=== PATIENT | female | born 1965 | race Hispanic/Latino ===

== ENCOUNTER 2019-07-14 17:19 | Emergency (ER) | payer BC ==
[~2019-07-14] VITALS: Ht 147.3 cm; Wt 90.0 kg
[~2019-07-14 17:19] MED LIST: AUGMENTIN875TAB PO; BENADRYL 50MG C50 MG PO; CIPROFLOXACN500 MG PO; DOXYCYCL HYC100 M4 PO; KENALOG15 GM/TUBE EX; NAPROSYN500 MG PO; NO HOME MEDS; PERCOCET 10/31 COMBO PO
[2019-07-14] MEDS ORDERED: LEVOTHYROXIN137 MCG PO (17:35)
[2019-07-14 18:14] LABS: HEMATOCRIT 40.9 % (37.0-47.0); HEMOGLOBIN 13.5 g/dl (12.0-16.0); IMMATURE GRANULOCYTES 0.6 % (0.0-5.0); MEAN CELL VOLUME 89.1 fL CALC (80.0-100.0); MEAN CORPUSCULAR HGB 29.4 pG CALC (26.0-32.0); NEUT# 3.25 thou/uL (2.00-7.15); RED BLOOD COUNT 4.59 mill/uL (4.20-5.60); RED CELL DISTRI WIDTH 13.2 % (11.5-15.5)
[2019-07-14 18:24] LABS: ALBUMIN 4.3 g/dL (3.2-5.0); ALKALINE PHOSPHATASE 164 u/l (38-126); ANION GAP 15 (6-22 (CALC)); BILIRUBIN, TOTAL 0.4 mg/dL (0.0-1.4); BUN 12 mg/dL (7-17); BUN/CREATININE RATIO 17 (12-20 (CALC)); CARBON DIOXIDE 24 mmol/l (22-30); CHLORIDE 105 mmol/l (95-108); CREATININE 0.7 mg/dL (0.5-1.0); GFR > 60 ML/MIN (>=60 (CALC)); GFR FOR AFR.AMER. > 60 ML/MIN (>=60 (CALC)); LIPASE 127 u/l (23-300); SGOT/AST 76 u/l (14-36); SODIUM 139 mmol/l (137-146); TOTAL PROTEIN 7.7 g/dL (6.3-8.2)
[2019-07-14 20:27] LABS: URINE BILIRUBIN - DIPSTICK NEGATIVE (NEGATIVE); URINE BLOOD DIPSTICK SMALL (NEGATIVE); URINE COLOR YELLOW; URINE GLUCOSE - DIPSTICK NEGATIVE (NEGATIVE); URINE KETONE NEGATIVE (NEGATIVE); URINE LEUK ESTERASE NEGATIVE (NEGATIVE); URINE NITRITE - DIPSTICK POSITIVE (Negative); URINE PH 5.5 (4.5-8.0); URINE PROTEIN - DIPSTICK NEGATIVE (NEG-TRACE); URINE SPECIFIC GRAVITY >=1.030; URINE UROBILINOGEN - DIPSTICK 0.2 E.U./dL (0.2)
[2019-07-14 20:50] LABS: URINE BACTERIA RARE hpf
[2019-07-14] MEDS ORDERED: CEPHALEXIN500 MG PO (21:24)
[2019-07-14] MEDS ORDERED: ULTRAM50 M1 PO (21:24)
[2019-07-14 21:30] VITALS: BP 109/58
== END 2019-07-14 21:36 | disposition home or self-care (01) | DRG 866 ==
LOC: ED 17:19
PROVIDERS: Family Medicine
DX: B34.9 Viral infection, unspecified (principal); N39.0 Urinary tract infection, site not specified; K76.0 Fatty (change of) liver, not elsewhere classified; Z85.118 Personal history of other malignant neoplasm of bronchus and lung; Z90.2 Acquired absence of lung [part of]
CPT/HCPCS: Q9967

== ENCOUNTER 2019-08-06 21:34 | Emergency (ER) | payer BC ==
[~2019-08-06] VITALS: Ht 149.9 cm; Wt 75.9 kg
[~2019-08-06 21:34] MED LIST changes: +CEPHALEXIN500 MG PO; +LEVOTHYROXIN137 MCG PO; +ULTRAM50 M1 PO
[2019-08-06 21:40] VITALS: BP 134/84
[2019-08-06 22:38] LABS: HEMATOCRIT 42.4 % (37.0-47.0); HEMOGLOBIN 13.8 g/dl (12.0-16.0); IMMATURE GRANULOCYTES 0.3 % (0.0-5.0); MEAN CELL VOLUME 89.1 fL CALC (80.0-100.0); MEAN CORPUSCULAR HGB CONC 32.5 g/L CALC (32.0-36.0); NEUT# 3.88 thou/uL (2.00-7.15); RED BLOOD COUNT 4.76 mill/uL (4.20-5.60); RED CELL DISTRI WIDTH 13.2 % (11.5-15.5)
[2019-08-06 22:45] LABS: URINE BILIRUBIN - DIPSTICK NEGATIVE (NEGATIVE); URINE BLOOD DIPSTICK MODERATE (NEGATIVE); URINE COLOR YELLOW; URINE GLUCOSE - DIPSTICK NEGATIVE (NEGATIVE); URINE KETONE NEGATIVE (NEGATIVE); URINE NITRITE - DIPSTICK NEGATIVE (Negative); URINE PROTEIN - DIPSTICK NEGATIVE (NEG-TRACE); URINE SPECIFIC GRAVITY <=1.005; URINE UROBILINOGEN - DIPSTICK 0.2 E.U./dL (0.2)
[2019-08-06 22:48] LABS: URINE LEUK ESTERASE SMALL (NEGATIVE)
[2019-08-06 22:51] LABS: URINE SQUAMOUS EPITHELIAL CELL FEW EPI/hpf (0-FEW)
[2019-08-06 23:03] LABS: ALBUMIN 4.5 g/dL (3.2-5.0); ALKALINE PHOSPHATASE 134 u/l (38-126); ANION GAP 15 (6-22 (CALC)); BILIRUBIN, TOTAL 0.4 mg/dL (0.0-1.4); BUN 13 mg/dL (7-17); BUN/CREATININE RATIO 14 (12-20 (CALC)); CARBON DIOXIDE 24 mmol/l (22-30); CHLORIDE 103 mmol/l (95-108); CREATININE 0.9 mg/dL (0.5-1.0); GFR > 60 ML/MIN (>=60 (CALC)); GFR FOR AFR.AMER. > 60 ML/MIN (>=60 (CALC)); POTASSIUM 3.9 mmol/l (3.5-5.1); SGOT/AST 82 u/l (14-36); SODIUM 139 mmol/l (137-146); TOTAL PROTEIN 8.1 g/dL (6.3-8.2)
[2019-08-06] MEDS ORDERED: MONISTAT1 VA (23:31)
[2019-08-06] MEDS ORDERED: CEPHALEXIN500 M1 PO (23:31)
== END 2019-08-06 23:45 | disposition home or self-care (01) | DRG 690 ==
LOC: ED 21:34
PROVIDERS: Emergency Medicine
DX: N39.0 Urinary tract infection, site not specified (principal); N76.0 Acute vaginitis; E03.9 Hypothyroidism, unspecified

== ENCOUNTER 2019-08-27 20:05 | Emergency (ER) | payer BC ==
[~2019-08-27] VITALS: Ht 149.9 cm; Wt 88.2 kg
[~2019-08-27 20:05] MED LIST changes: +CEPHALEXIN500 M1 PO; +MONISTAT1 VA
[2019-08-27 21:46] LABS: HEMOGLOBIN 13.4 g/dl (12.0-16.0); IMMATURE GRANULOCYTES 0.4 % (0.0-5.0); MEAN CELL VOLUME 90.1 fL CALC (80.0-100.0); MEAN CORPUSCULAR HGB 29.5 pG CALC (26.0-32.0); MEAN CORPUSCULAR HGB CONC 32.7 g/L CALC (32.0-36.0); NEUT# 4.82 thou/uL (2.00-7.15); RED BLOOD COUNT 4.55 mill/uL (4.20-5.60); RED CELL DISTRI WIDTH 13.2 % (11.5-15.5)
[2019-08-27 21:47] LABS: URINE BILIRUBIN - DIPSTICK NEGATIVE (NEGATIVE); URINE BLOOD DIPSTICK SMALL (NEGATIVE); URINE COLOR YELLOW; URINE GLUCOSE - DIPSTICK NEGATIVE (NEGATIVE); URINE KETONE NEGATIVE (NEGATIVE); URINE NITRITE - DIPSTICK NEGATIVE (Negative); URINE PROTEIN - DIPSTICK NEGATIVE (NEG-TRACE); URINE SPECIFIC GRAVITY 1.025; URINE UROBILINOGEN - DIPSTICK 0.2 E.U./dL (0.2)
[2019-08-27 21:48] LABS: URINE LEUK ESTERASE SMALL (NEGATIVE)
[2019-08-27 21:57] LABS: URINE SQUAMOUS EPITHELIAL CELL MODERATE EPI/hpf (0-FEW)
[2019-08-27 21:58] LABS: ALKALINE PHOSPHATASE 148 u/l (38-126); AMYLASE 45 u/l (30-110); ANION GAP 14 (6-22 (CALC)); BILIRUBIN, TOTAL 0.5 mg/dL (0.0-1.4); BUN 9 mg/dL (7-17); BUN/CREATININE RATIO 16 (12-20 (CALC)); CARBON DIOXIDE 22 mmol/l (22-30); CHLORIDE 105 mmol/l (95-108); CREATININE 0.6 mg/dL (0.5-1.0); GFR > 60 ML/MIN (>=60 (CALC)); GFR FOR AFR.AMER. > 60 ML/MIN (>=60 (CALC)); LIPASE 108 u/l (23-300); POTASSIUM 3.9 mmol/l (3.5-5.1); SGOT/AST 46 u/l (14-36); SODIUM 137 mmol/l (137-146); TOTAL PROTEIN 7.3 g/dL (6.3-8.2)
[2019-08-27] MEDS ORDERED: LOMOTIL2.5 MG PO (23:20)
[2019-08-27] MEDS ORDERED: PHENERGAN25 MG/TAB PO (23:20)
[2019-08-27 23:59] VITALS: BP 111/72
== END 2019-08-27 23:59 | disposition home or self-care (01) | DRG 392 ==
LOC: ED 20:05
PROVIDERS: Family Medicine
DX: A08.4 Viral intestinal infection, unspecified (principal); E03.9 Hypothyroidism, unspecified

== ENCOUNTER 2019-10-30 | Emergency (ER) | payer BC ==
[~2019-10-30] MED LIST changes: +LOMOTIL2.5 MG PO; +PHENERGAN25 MG/TAB PO
[2019-10-30 22:43] LABS: HEMATOCRIT 43.7 % (37.0-47.0); HEMOGLOBIN 14.4 g/dl (12.0-16.0); IMMATURE GRANULOCYTES 1.3 % (0.0-5.0); MEAN CELL VOLUME 89.2 fL CALC (80.0-100.0); MEAN CORPUSCULAR HGB 29.4 pG CALC (26.0-32.0); NEUT# 4.8 thou/uL (2.00-7.15); RED BLOOD COUNT 4.9 mill/uL (4.20-5.60); RED CELL DISTRI WIDTH 13.4 % (11.5-15.5)
[2019-10-30 23:00] LABS: ALBUMIN 4.2 g/dL (3.2-5.0); ALKALINE PHOSPHATASE 161 u/l (38-126); AMYLASE 49 u/l (30-110); ANION GAP 14 (6-22 (CALC)); BILIRUBIN, TOTAL 0.3 mg/dL (0.0-1.4); BUN 17 mg/dL (7-17); BUN/CREATININE RATIO 18 (12-20 (CALC)); CHLORIDE 98 mmol/l (95-108); CREATININE 0.9 mg/dL (0.5-1.0); GFR > 60 ML/MIN (>=60 (CALC)); GFR FOR AFR.AMER. > 60 ML/MIN (>=60 (CALC)); LIPASE 144 u/l (23-300); POTASSIUM 4.4 mmol/l (3.5-5.1); SGOT/AST 67 u/l (14-36); SODIUM 136 mmol/l (137-146); TOTAL PROTEIN 7.5 g/dL (6.3-8.2)
[2019-10-30 23:02] LABS: CARBON DIOXIDE 28 mmol/l (22-30)
[2019-10-30 23:12] LABS: MYOGLOBIN 20 ng/mL (0 - 62)
[2019-10-31] MEDS ORDERED: BENADRYL 50MG C50 MG PO (01:29)
[2019-10-31] MEDS ORDERED: MEDDOSEPAK PO (01:29)
[2019-10-31] MEDS ORDERED: PEPCID20 MG PO (01:29)
== END 2019-10-31 01:58 | disposition home or self-care (01) | DRG 607 ==
PROVIDERS: Emergency Medicine
DX: L27.1 Localized skin eruption due to drugs and medicaments taken internally (principal); T37.0X5A Adverse effect of sulfonamides, initial encounter; K29.70 Gastritis, unspecified, without bleeding; R74.8 Abnormal levels of other serum enzymes; E03.9 Hypothyroidism, unspecified
CPT/HCPCS: Q9967; S0164

== ENCOUNTER 2020-02-18 13:23 | Inpatient (IN) | payer BC ==
[~2020-02-18] VITALS: Ht 149.9 cm; Wt 77.0 kg
[~2020-02-18 13:23] MED LIST changes: +MEDDOSEPAK PO; +PEPCID20 MG PO
--- NOTE | 2020-02-18 13:37 | NUR ---
PATIENT AMBULATED TO ROOM WITH STEADY GAIT AND PHYSICIAN NOTIFIED OF PATIENT STATUS
--- NOTE | 2020-02-18 13:40 | NUR ---
INITIATED IV AND FLU AND COVID SWAB OBTAINED. PT STATES SHE VISITED HER SISTER IN [place] ON 01/30/20 AND SISTER IS IN THE HOSPITAL WITH "LUNG PROBLEMS FROM THE UGALDE VIRUS FOR A WEEK".PT WITH NAUSEA AND EMESIS.
[2020-02-18 14:07] LABS: HEMATOCRIT 40.1 % (37.0-47.0); IMMATURE GRANULOCYTES 0.3 % (0.0-5.0); MEAN CELL VOLUME 89.9 fL CALC (80.0-100.0); MEAN CORPUSCULAR HGB 29.1 pG CALC (26.0-32.0); MEAN CORPUSCULAR HGB CONC 32.4 g/dL CAL (32.0-36.0); NEUT# 5.06 thou/uL (2.00-7.15); RED BLOOD COUNT 4.46 mill/uL (4.20-5.60)
[2020-02-18 14:28] LABS: ALBUMIN 4.2 g/dL (3.2-5.0); ALKALINE PHOSPHATASE 115 u/l (38-126); ANION GAP 15 (6-22 (CALC)); BUN 12 mg/dL (7-17); BUN/CREATININE RATIO 16 (12-20 (CALC)); C-REACTIVE PROTEIN 6.3 mg/dL (0-0.9); CARBON DIOXIDE 26 mmol/l (22-30); CHLORIDE 101 mmol/l (95-108); CREATININE 0.7 mg/dL (0.5-1.0); GFR > 60 ML/MIN (>=60 (CALC)); GFR FOR AFR.AMER. > 60 ML/MIN (>=60 (CALC)); POTASSIUM 4.3 mmol/l (3.5-5.1); SGOT/AST 53 u/l (14-36); SODIUM 137 mmol/l (137-146); TOTAL PROTEIN 7.4 g/dL (6.3-8.2)
[2020-02-18 14:34] LABS: BILIRUBIN, TOTAL 0.5 mg/dL (0.0-1.4)
--- NOTE | 2020-02-18 14:40 | NUR ---
DR GOULD AT BEDSIDE TO DISCUSS POC AND FINGINDS AND CONTINUED TESTING; VSS; WILL CONTINUE TO MONITOR
[2020-02-18 14:42] LABS: BETA-HCG, QUANT(RESULT NUMBER) <2 mIU/mL
--- NOTE | 2020-02-18 15:40 | NUR ---
PT RESTING ON STRETCHER; REQUESTING IV FLUIDS AT THIS TIME FOR "FEELING SO WEAK AND HAVEN'T EATEN TODAY"; NOTFIED; IVF INFUSING PER MAR; PT MEDICATED FOR TEMP 100.8; PT ADVISED OF CONTINUED WAIT TIME FOR TEST RESULTS; MONITORING DEVICES IN PLACE; VSS; WILL CONTINUE TO MONITOR
--- NOTE | 2020-02-18 16:40 | NUR ---
PT RESTING ON STRETCHER; ADVISED OF CONTINUED WAIT TIME; WILL CONTINUE TO MONITOR
--- NOTE | 2020-02-18 17:13 | NUR ---
IV ANTIBITOICS INFUSING PT ADVISED OF CONTINUED WAIT TIME; VSS; WILL CONTINUE TO MONITOR
[2020-02-18 17:42] LABS: URINE BILIRUBIN - DIPSTICK NEGATIVE (NEGATIVE); URINE BLOOD DIPSTICK TRACE-INTACT (NEGATIVE); URINE COLOR YELLOW; URINE GLUCOSE - DIPSTICK NEGATIVE (NEGATIVE); URINE KETONE NEGATIVE (NEGATIVE); URINE LEUK ESTERASE NEGATIVE (NEGATIVE); URINE NITRITE - DIPSTICK NEGATIVE (Negative); URINE PH 7.5 (4.5-8.0); URINE PROTEIN - DIPSTICK NEGATIVE (NEG-TRACE); URINE SPECIFIC GRAVITY 1.015
--- NOTE | 2020-02-18 18:17 | NUR ---
REPORT CALLED TO MED SURG
--- NOTE | 2020-02-18 18:45 | NUR ---
Admission Note Report Given to: SOPHIE JEAN BAPTISTE Transported by: Wheelchair X Stretcher Transported with: X Nurse Transporter X Patent IV X O2 X Hardware Press Operator Location: ICU X MS2
[2020-02-18 18:55] VITALS: BP 119/71
--- NOTE | 2020-02-18 20:00 | NUR ---
PT REPORTEDLY ARRIVED TO UNIT @ 1845, UPON ENTERING ROOM PT IS FOUND SITTING UP IN BED TALKING ON PHONE. NO APPARENT DISTRESS. RESPIRATIONS REGULAR AND UNLABORED. PHYSICAL ASSESSMENT COMPLETE. VS TAKEN BY UNIVERSAL WORKER ASSISTED LIVING @ 1855 ASSESSED. PLAN OF CARE REVIEWED, PT VERBALIZES UNDERSTANDING AND DENIES QUESTIONS. DENIES FURTHER NEEDS @ THIS TIME. ITEMS WITHIN REACH. BED LOCKED IN LOW POSITION W/ BEDRAILS UP X2. AIRBORNE/CONTACT PRECAUTIONS IN PLACE. CALL SHEPPARD WITHIN REACH. AGREES TO CALL PRN.
--- NOTE | 2020-02-18 20:20 | NUR ---
CLARIFIED ZITHROMAX DOSE W/ DR. GUERRERO PER PHARMACIST MARIAMA'S REQUEST. ORDER RECEIVED FOR PRN ANTITUSSIVE WELL. SEE MAR.
[2020-02-18 23:55] VITALS: BP 123/63
--- NOTE | 2020-02-19 01:08 | NUR ---
PT C/O OF NAUSEA, SPOKE W/ DR. LEWIS FOR ANTI-EMETIC ORDERS, ZOFRAN IV PRESCRIBED. SEE MAR.
--- NOTE | 2020-02-19 01:43 | NUR ---
UPON ENTERING ROOM TO MEDICATE PT W/ ZOFRAN PT FOUND TO BE SLEEPING SOUNDLY. APPEARS COMFORTABLE AND IN NO DISTRESS, RESPIRATIONS REGULAR AND UNLABORED. CALL SHEPPARD REMAINS WITHIN REACH. SAFETY INTERVENTIONS AND AIRBORNE/CONTACT PRECAUTIONS REMAIN IN PLACE/UNCHANGED.
[2020-02-19 04:10] VITALS: BP 119/69
[2020-02-19 06:13] LABS: HEMATOCRIT 38.3 % (37.0-47.0); HEMOGLOBIN 12.3 g/dl (12.0-16.0); IMMATURE GRANULOCYTES 0.5 % (0.0-5.0); MEAN CELL VOLUME 90.5 fL CALC (80.0-100.0); MEAN CORPUSCULAR HGB 29.1 pG CALC (26.0-32.0); MEAN CORPUSCULAR HGB CONC 32.1 g/dL CAL (32.0-36.0); NEUT# 4.8 thou/uL (2.00-7.15); RED BLOOD COUNT 4.23 mill/uL (4.20-5.60); RED CELL DISTRI WIDTH 13.2 % (11.5-15.5)
[2020-02-19 06:27] LABS: ALBUMIN 3.9 g/dL (3.2-5.0); ALKALINE PHOSPHATASE 104 u/l (38-126); ANION GAP 12 (6-22 (CALC)); BILIRUBIN, TOTAL 0.5 mg/dL (0.0-1.4); BUN 9 mg/dL (7-17); BUN/CREATININE RATIO 12 (12-20 (CALC)); C-REACTIVE PROTEIN 7.6 mg/dL (0-0.9); CARBON DIOXIDE 27 mmol/l (22-30); CHLORIDE 100 mmol/l (95-108); CREATININE 0.7 mg/dL (0.5-1.0); GFR > 60 ML/MIN (>=60 (CALC)); GFR FOR AFR.AMER. > 60 ML/MIN (>=60 (CALC)); POTASSIUM 4.1 mmol/l (3.5-5.1); SGOT/AST 69 u/l (14-36); SODIUM 135 mmol/l (137-146); TOTAL PROTEIN 6.9 g/dL (6.3-8.2)
[2020-02-19 07:40] VITALS: BP 130/75
--- NOTE | 2020-02-19 07:40 | NUR ---
ASSSESSMENT IS COMPLETED: IV SITE IS FREE FROM REDNESS OR EDEMA. HR IS REG,PULSES ARE STRONG X4, ABD IS SOFT WITH ACTIVE BS. BREATH SOUNDS ARE CLEAR,BILATERALLY, TELE MONITOR IN PLACE. CONTINEU TO OBSERVE AND MONITOR.
[2020-02-19] MEDS ORDERED: METFORMIN500 M2 PO (09:11)
[2020-02-19] MEDS ORDERED: LIPITOR20 M1 PO (09:12)
[2020-02-19] MEDS ORDERED: LEVOTHYROXIN125 MCG PO (09:12)
--- NOTE | 2020-02-19 09:13 | NUR ---
SPOKE WITH PT, COMPLETED MED REC. UPDATED MED LIST.
[2020-02-19 12:15] VITALS: BP 101/68
--- NOTE | 2020-02-19 12:40 | NUR ---
PT IS RELAXING IN BED WITH NO DISTRESS NOTED. IV SITE IS FREE FROM REDNESS OR EDEMA.
[2020-02-19 16:14] VITALS: BP 106/57; BP 126/64
[2020-02-19 19:15] VITALS: BP 115/71
--- NOTE | 2020-02-19 21:10 | NUR ---
PT IS LAYING ON HER BACK TALKING ON CELL PHONE. I ASKED IF PT NEEDED ME TO RETURN AT ANOTHER TIME, SHE REPLIED "NO, GO AHEAD AND DO WHAT YOU NEED TO DO." I EXPLAINED MEDICATIONS TO PT AND ADMINISTERED, MEDICATING HER FOR HEADACHE REPORTED 10/10 ON PAIN SCALE W/TYLENOL. PT STATED THAT SHE WILL TAKE IT, BUT IT "WILL NOT DO ANYTHING, I NEED SOMETHING STRONGER." I INFORMED PT THAT I WOULD PUT A CALL IN TO THE DOCTOR REGARDING NEED AND ATTEMPT TO GET AN ORDER FOR SOMETHING TO RELEIVE HER HEAD PAIN. ASSESSMENT COMPLETED AT THIS TIME TO THE BEST OF MY ABILITY, PT REMAINED ON PHONE AND WAS PARTIALLY NON-COMPLIANT W/ASSESSMENT. LUNG SOUNDS ARE DIMINISHED THROUGHOUT.
--- NOTE | 2020-02-19 21:43 | NUR ---
MEDICATED PT FOR HEADACHE 8/10 ON PAIN SCALE AND EXPLAINED TO HER THAT THE DOCTOR GAVE INSTRUCTIONS TO LAY PRONE ON HER STOMACH AND EDUCATED PT ON REASONING/PURPOSE/OUTCOME. SHE NODDED AND REPLIED "OKAY." PT DID NOT TURN OVER AT THAT TIME. I EXPLAINED THE PHYSICIANS INSTRUCTIONS/REQUEST AND REASONS BEHIND IT TWO TIMES PRIOR TO LEAVING ROOM, SHE VERBALIZED UNDERSTANDING, BUT REMAINED ON HER SIDE UNTIL I LEFT THE ROOM. PT DENIED ANY OTHER NEEDS AND STATED SHE WILL CALL IF SHE NEEDS ANYTHING FURTHER.
[2020-02-19 23:40] VITALS: BP 116/71
--- NOTE | 2020-02-20 03:05 | NUR ---
PT SLEEPING, NO S/O DISTRESS NOTED.
[2020-02-20 03:53] VITALS: BP 123/82
--- NOTE | 2020-02-20 05:23 | NUR ---
ATTEMPT TO DRAW BLOOD FOR LABS, UNABLE TO OBTAIN. PT MEDICATED FOR HEADACHE AT THIS TIME. ASKING FOR FRESH ICEWATER IN PLACE OF HER WATER, DENIES ANY OTHER NEEDS AT THIS TIME.
[2020-02-20 07:56] VITALS: BP 107/73
--- NOTE | 2020-02-20 09:00 | NUR ---
PT IS ALERT, ORIENTED X 3, AMBULATORY IN ROOM, NO EVIDENCE OF DISTRESS. LUNGS ARE CLEAR, RA. PT WITH HEADACHE, TO RECEIVE ULTRAM.
--- NOTE | 2020-02-20 09:10 | NUR ---
CALLED [facility] AND SPOKE WITH BLAKE, PATIENT'S NURSE AND THEN CALLED PATIENT'S PROVIDER TO GIVE COVID RESULTS.
[2020-02-20 09:17] LABS: HEMATOCRIT 38.7 % (37.0-47.0); HEMOGLOBIN 12.1 g/dl (12.0-16.0); IMMATURE GRANULOCYTES 0.3 % (0.0-5.0); MEAN CELL VOLUME 92.4 fL CALC (80.0-100.0); MEAN CORPUSCULAR HGB 28.9 pG CALC (26.0-32.0); MEAN CORPUSCULAR HGB CONC 31.3 g/dL CAL (32.0-36.0); NEUT# 5.99 thou/uL (2.00-7.15); RED BLOOD COUNT 4.19 mill/uL (4.20-5.60); RED CELL DISTRI WIDTH 13.2 % (11.5-15.5)
[2020-02-20 09:25] LABS: ALBUMIN 3.8 g/dL (3.2-5.0); ALKALINE PHOSPHATASE 98 u/l (38-126); ANION GAP 12 (6-22 (CALC)); BILIRUBIN, TOTAL 0.5 mg/dL (0.0-1.4); BUN 12 mg/dL (7-17); BUN/CREATININE RATIO 16 (12-20 (CALC)); CARBON DIOXIDE 29 mmol/l (22-30); CHLORIDE 97 mmol/l (95-108); CREATININE 0.8 mg/dL (0.5-1.0); GFR > 60 ML/MIN (>=60 (CALC)); GFR FOR AFR.AMER. > 60 ML/MIN (>=60 (CALC)); SGOT/AST 61 u/l (14-36); SODIUM 134 mmol/l (137-146); TOTAL PROTEIN 6.9 g/dL (6.3-8.2)
[2020-02-20 09:36] LABS: C-REACTIVE PROTEIN 13.7 mg/dL (0-0.9)
[2020-02-20 11:35] VITALS: BP 108/70
--- NOTE | 2020-02-20 12:43 | NUR ---
PT PROVIDED TYLENOL PER TEMP OF 101.9, NOW SEEN TO BE 99.4. HEADACHE STILL THERE BUT HAS IMPROVED.
[2020-02-20 16:16] VITALS: BP 119/59
--- NOTE | 2020-02-20 16:19 | NUR ---
PT TEMP NOW 100.1, WILL MEDICATE WITH TYLENOL WHEN IT IS AVAILABLE AGAIN.
[2020-02-20 19:15] VITALS: BP 128/83
--- NOTE | 2020-02-20 20:00 | NUR ---
ASSESSMENT COMPLETED. IV SITE PATENT AND SL, FLUSHES WELL. DENIES PAIN AT THIS TIME. PT. IS JUST OUT OF THE SHOWER. REPORTS BM EARLIER IN THE DAY AND REPORTS NO DIARRHEA. TELEMETRY RE-APPLIED. UPDATED ON POC AND VERBALIZES UNDERSTANDING. ENCOURAGED TO CALL FOR ANY NEEDS. CALL LIGHT IS IN REACH.
[2020-02-20 23:40] VITALS: BP 119/75
--- NOTE | 2020-02-21 00:10 | NUR ---
PT. C/O CASTELLON AND MEDICATED WITH ORDERED PRN TYLENOL, WILL REASSESS. DENIES FURTHER NEEDS. CALL LIGHT IS IN REACH.
[2020-02-21 03:02] VITALS: BP 119/78
--- NOTE | 2020-02-21 03:15 | NUR ---
PT. SLIGHTLY ANXIOUS AND TEARY EYED R/T RECENT PASSING OF HER SISTER(SHE WAS NOTIFIED EARLIER THIS AM BY DAUGHTER).PT. REQUESTING SOMETHING TO HELP HER RELAX. CALLED ED PHYSICIAN AND NOTIFIED HIM OF THIS, NEW ORDERS RECEIVED AND TO BE CARRIED OUT.
[2020-02-21 07:50] VITALS: BP 96/70
[2020-02-21 09:18] LABS: HEMATOCRIT 37.3 % (37.0-47.0); IMMATURE GRANULOCYTES 0.5 % (0.0-5.0); MEAN CELL VOLUME 91.2 fL CALC (80.0-100.0); MEAN CORPUSCULAR HGB 29.3 pG CALC (26.0-32.0); MEAN CORPUSCULAR HGB CONC 32.2 g/dL CAL (32.0-36.0); NEUT# 4.88 thou/uL (2.00-7.15); RED BLOOD COUNT 4.09 mill/uL (4.20-5.60); RED CELL DISTRI WIDTH 13.2 % (11.5-15.5)
[2020-02-21 09:45] LABS: ALBUMIN 3.6 g/dL (3.2-5.0); ALKALINE PHOSPHATASE 90 u/l (38-126); ANION GAP 12 (6-22 (CALC)); BILIRUBIN, TOTAL 0.5 mg/dL (0.0-1.4); BUN 12 mg/dL (7-17); BUN/CREATININE RATIO 19 (12-20 (CALC)); CARBON DIOXIDE 26 mmol/l (22-30); CHLORIDE 99 mmol/l (95-108); CREATININE 0.6 mg/dL (0.5-1.0); GFR > 60 ML/MIN (>=60 (CALC)); GFR FOR AFR.AMER. > 60 ML/MIN (>=60 (CALC)); POTASSIUM 4.1 mmol/l (3.5-5.1); SGOT/AST 43 u/l (14-36); SODIUM 133 mmol/l (137-146); TOTAL PROTEIN 6.8 g/dL (6.3-8.2)
--- NOTE | 2020-02-21 10:02 | NUR ---
PT SEEN RELAXED IN THE BED, NO DISTRESS. PT SAD PER SISTER'S DURING THE NIGHT IN [place].
[2020-02-21 10:04] LABS: C-REACTIVE PROTEIN 16.1 mg/dL (0-0.9)
[2020-02-21 11:36] VITALS: BP 114/65
--- NOTE | 2020-02-21 15:22 | NUR ---
PT RESTS IN THE BED, TREATED FOR A HEADACHE. NO DISTRESS NOTED OTHERWISE.
[2020-02-21 15:44] VITALS: BP 106/63
--- NOTE | 2020-02-21 16:14 | NUR ---
PT PROVIDED MOTRIN AND ICE PACK FOR HEADACHE PAIN, SEEN UNCOMFORTABLE IN THE BED. SHE DID REFUSE ULTRAM FOR HEADACHE.
--- NOTE | 2020-02-21 18:01 | NUR ---
PT PROVIDED ABX ORDERED, HEADACHE IMPROVED.
[2020-02-21 18:52] VITALS: BP 100/75
--- NOTE | 2020-02-21 20:08 | NUR ---
ASSESSMENT COMPLETED. NO DISTRESS NOTED. O2 INFUSING PER NC AND SPO2 97% ON 2 LITERS/MIN AND TITRATED DOWN TO 1LITER/MIN. UPDATED ON POC; VERBALIZES UNDERSTANDING. COLD PACK APPLIED TO NECK, DENIES NEEDS FOR PAIN MEDS FOR CASTELLON AT THIS TIME. ENCOURAGED TO CALL FOR ANY NEEDS. CALL LIGHT IS IN REACH.
[2020-02-22 00:42] VITALS: BP 94/68
--- NOTE | 2020-02-22 00:45 | NUR ---
RESTING IN BED WITH NO DISTRESS NOTED; DENIES NEEDS. VSS. ENCOURAGED TO CALL FOR ANY NEEDS. CALL LIGHT IS IN REACH.
[2020-02-22 04:53] VITALS: BP 113/71
--- NOTE | 2020-02-22 04:53 | NUR ---
VSS. NO DISTRESS NOTED. AM LABS OBTAINED. DENIES NEEDS. CALL LIGHT IS IN REACH. WILL CONTINUE TO MONITOR.
[2020-02-22 05:55] LABS: HEMATOCRIT 38.8 % (37.0-47.0); HEMOGLOBIN 12.4 g/dl (12.0-16.0); MEAN CELL VOLUME 91.9 fL CALC (80.0-100.0); MEAN CORPUSCULAR HGB 29.4 pG CALC (26.0-32.0); RED BLOOD COUNT 4.22 mill/uL (4.20-5.60); RED CELL DISTRI WIDTH 13.2 % (11.5-15.5)
[2020-02-22 06:11] LABS: ANION GAP 13 (6-22 (CALC)); BUN 15 mg/dL (7-17); BUN/CREATININE RATIO 25 (12-20 (CALC)); CARBON DIOXIDE 26 mmol/l (22-30); CHLORIDE 103 mmol/l (95-108); CREATININE 0.6 mg/dL (0.5-1.0); GFR > 60 ML/MIN (>=60 (CALC)); GFR FOR AFR.AMER. > 60 ML/MIN (>=60 (CALC)); POTASSIUM 4.1 mmol/l (3.5-5.1); SODIUM 137 mmol/l (137-146)
[2020-02-22 06:46] LABS: C-REACTIVE PROTEIN 11.6 mg/dL (0-0.9)
--- NOTE | 2020-02-22 07:45 | NUR ---
REPORT RECEIVED FROM SOPHIE WALL. PT SITTING UP ON EDGE OF BED EATING BREAKFAST; ALERT AND ORIENTED; FLAT AFFECT. C/O 9/10 HEADACHE; ICE PACK PROVIDED AND MOTRIN GIVEN. RESPIRATIONS SHALLOW; PT EXPERIENCING SOB AFTER AMBULATING TO BATHROOM AND DRY HEAVING; CURRENTLY DENIES NAUSEA; OXYGEN ON AT 1L; SPO2 88%; TITRATED UP TO 2L AND SPO2 INCREASED TO 91%. EDUCATED ON BREATHING TECHNIQUES. TELE ON. IV SITE APPEARS HEALTHY AND FLUSHES. PLAN OF CARE REVIEWED. PT ENCOURAGED TO VERBALIZE CONCERNS. STATES UNDERSTANDING. SAFETY MEASURES IN PLACE. CALL LIGHT WITHIN REACH.
[2020-02-22 08:15] VITALS: BP 107/69
--- NOTE | 2020-02-22 11:17 | NUR ---
DR. PACK AT BEDSIDE FOR EVAL. SPO2 UP TO 96% ON 2L VIA NC.
[2020-02-22 11:20] VITALS: BP 95/63
[2020-02-22 15:32] VITALS: BP 119/68
--- NOTE | 2020-02-22 15:55 | NUR ---
PT INDEPENDENT IN ROOM. RESTING IN BED SEMI FOWLERS WATCHING TV; ALERT AND ORIENTED. STATES THAT HER FAMILY IS DOING A VISITATION SERVICE FOR HER SISTER WHO YESTERDAY AND ARE CREMATING HER. PT ENCOURAGED TO VERBALIZE HER FEELINGS. NO OTHER REQUESTS OR CONCERNS AT THIS TIME. CALL LIGHT WITHIN REACH.
--- NOTE | 2020-02-22 20:38 | NUR ---
REPORT FROM CASIMIRO BARRIOS. PT NOTED RESTING IN BED ON CELL PHONE. PT DENIES ANY PAIN OR DISCOMFORT AT THIS TIME. IV SITE APPEARS HEALTHY. SENIOR FACILITIES MANAGER IN PLACE. 02 @ 2L/M VIA NC. DISCUSSED POC. PT VERBALIZED UNDERSTANDING. ORANGE JUICE AND TOILET PAPER PROVIDED UPON REQUEST. CALL LIGHT WITHIN REACH. WILL CONTINUE TO MONITOR.
[2020-02-22 20:39] VITALS: BP 114/72
--- NOTE | 2020-02-23 00:22 | NUR ---
PT RESTING IN BED WITH EYES CLOSED. NO APPARENT DISTRESS NOTED. CALL LIGHT WITHIN REACH. WILL CONTINUE TO MONITOR.
[2020-02-23 01:19] VITALS: BP 109/78
[2020-02-23 04:16] VITALS: BP 106/63
--- NOTE | 2020-02-23 04:29 | NUR ---
PT MEDICATED FOR HEADACHE 10-10. ICE PACK PROVIDED. PT DENIES ANY OTHER WANTS OR NEEDS. CALL LIGHT WITHIN REACH. WILL CONTINUE TO MONITOR.
[2020-02-23 04:57] LABS: BASO% 0 % (0-3); EOS% 1 % (0-8); HEMATOCRIT 36.6 % (37.0-47.0); HEMOGLOBIN 11.6 g/dl (12.0-16.0); IMMATURE GRANULOCYTES 1.6 % (0.0-5.0); LYMPH% 29 % (15-41); MEAN CELL VOLUME 91.5 fL CALC (80.0-100.0); MEAN CORPUSCULAR HGB CONC 31.7 g/dL CAL (32.0-36.0); MONO% 15 % (2-13); NEUT# 2.59 thou/uL (2.00-7.15); NEUT% 53 % (42-76); PLATELET COUNT 149 thou/uL (130-400)
[2020-02-23 05:17] LABS: ALBUMIN 3.5 g/dL (3.2-5.0); ALKALINE PHOSPHATASE 111 u/l (38-126); ANION GAP 8 (6-22 (CALC)); BILIRUBIN, TOTAL 0.4 mg/dL (0.0-1.4); BUN 14 mg/dL (7-17); BUN/CREATININE RATIO 20 (12-20 (CALC)); CHLORIDE 102 mmol/l (95-108); CREATININE 0.7 mg/dL (0.5-1.0); GFR > 60 ML/MIN (>=60 (CALC)); GFR FOR AFR.AMER. > 60 ML/MIN (>=60 (CALC)); POTASSIUM 3.9 mmol/l (3.5-5.1); SGOT/AST 71 u/l (14-36); SODIUM 138 mmol/l (137-146); TOTAL PROTEIN 6.7 g/dL (6.3-8.2)
[2020-02-23 05:27] LABS: CARBON DIOXIDE 32 mmol/l (22-30)
--- NOTE | 2020-02-23 09:05 | NUR ---
PRESS CLEANER AT BEDSIDE PATIENT APPEARS IN NO DISTRESS AT THIS TIME. PATIENT REQUESTING INCENTIVE SPIROMETER. DEVICE GIVEN AND INSTRUCTIONS AND GOAL STATED TO PATIENT. PATIENT VERBALIZED UNDERSTANDING. PER PRESS CLEANER GOAL IS 1200. PATIENT DENIES ANY PAIN AT THIS TIME. PATIENT MEDICATED PER ORDER
[2020-02-23 11:00] VITALS: BP 105/75
--- NOTE | 2020-02-23 12:00 | NUR ---
PT RESTING IN SEMI FOWLERS POSITION WATCHING TV. RESPIRATIONS ARE EVEN AND UNLABORED. PT DENIES ANY PAIN OR DISCOMFORTS AT THIS TIME. TELE IN PLACE. ALL SAFTEY PERCAUTIONS IN PLACE WITH CALL LIGHT IN REACH. WILL CONTINUE TO MONITOR.
--- NOTE | 2020-02-23 14:59 | NUR ---
RECIEVED REPORT FROM MARBELLA CEDILLO. ASSESSMENT COMPLETED BY SOPHIE MERCADO. HEART RHYTHM IS NORMAL. LUNG SOUNDS ARE DIMINISHED, PT STATES THAT SHE IS UNABLE TO TAKE DEEP BREATHS OR SHE WILL START COUGHING. PT RECIEVING O2 2L NC NEEDED. BOWEL SOUNDS ARE ACTIVE IN ALL QUADRANTS.PT REQUESTED SOMETHING TO ASSIST WITH BM.PT DENIED PRUNE JUICE DUE TO HAVING A BOWEL MOVMENT ALREADY. LAST REPORTED BM WAS THIS MORNING. RADIAL PULSES ARE STRONG WITH NORMAL CAPILLARY REFILL. PEDAL PULSES ARE WEAK WITH NORMAL CAPILLARY REFILL. IV FLUSHED, SITE APPEARS HEATHY AND PATENT. TELE IN PLACE. PT DENIES ANY PAIN OR DISCOMFORTS AT THIS TIME. ALL SAFTEY PRECAUTIONS IN PLACE WITH CALL LIGHT IN PLACE. WILL CONTINUE TO MONITOR.
[2020-02-23 15:30] VITALS: BP 102/73
--- NOTE | 2020-02-23 16:30 | NUR ---
PT RESTING IN SEMI FOWLERS POSITION. RESPIRATIONS ARE EVEN AND UNLABORED WITH NO SIGNS OF DISTRESS. TELE IN PLACE. ALL SAFETY PRECAUTIONS IN PLACE WITH CALL LIGHT IN REACH. WILL CONTINUE TO MONITOR.
--- NOTE | 2020-02-23 17:50 | NUR ---
ATTEMPTED TO REPLACE IV TWICE, UNSUCCESSFUL BOTH TIMES.
[2020-02-23 19:30] VITALS: BP 117/78
--- NOTE | 2020-02-23 20:46 | NUR ---
PT MEDICATED AT THIS TIME W/PM MEDICATIONS. IV ANTIBIOTIC COMPLETED AT THIS TIME. IV FLUSHED/PATENT. DISCUSSED W/PT OBTAINING NEW IV SITE IN THE MORNING AT TIME OF LAB DRAWS/SHE VERBALIZED AGREEMENT/UNDERSTANDING. PT DENIED ANY OTHER NEEDS AT THIS TIME. CALL LIGHT LEFT IN HAND AND LIGHTS ON LOW.
[2020-02-23 23:50] VITALS: BP 124/84
--- NOTE | 2020-02-24 02:35 | NUR ---
PT SLEEPING, NO S/O DISTRESS NOTED.
[2020-02-24 04:25] VITALS: BP 129/76
--- NOTE | 2020-02-24 05:05 | NUR ---
BLOOD DRAWN FOR LABS, PT ASKED TO WAIT FOR NEW IV ACCESS SINCE THIS IV SITE IS WORKING WELL AND SHE IS HOPING TO GO HOME TODAY, AGREED. WILL NOTIFY [facility] OF REQUEST AND IV STATUS. PT MEDICATED FOR PAIN IN HEAD, PT REFUSED TYLENOL, ASKED FOR ULTRAM/PROVIDED, PT REPORTING PAIN 7/10 ON PAIN SCALE. PT IS UP WALKING AROUND THE ROOM AT THIS TIME. PT ASKING FOR JUICE, DENIES ANY OTHER NEEDS, JUICE PROVIDED.
[2020-02-24 06:51] LABS: HEMATOCRIT 38.8 % (37.0-47.0); HEMOGLOBIN 12.6 g/dl (12.0-16.0); IMMATURE GRANULOCYTES 4.9 % (0.0-5.0); MEAN CELL VOLUME 90.7 fL CALC (80.0-100.0); MEAN CORPUSCULAR HGB 29.4 pG CALC (26.0-32.0); MEAN CORPUSCULAR HGB CONC 32.5 g/dL CAL (32.0-36.0); NEUT# 2.4 thou/uL (2.00-7.15); RED BLOOD COUNT 4.28 mill/uL (4.20-5.60); RED CELL DISTRI WIDTH 13.4 % (11.5-15.5)
[2020-02-24 07:11] LABS: ALBUMIN 3.7 g/dL (3.2-5.0); ALKALINE PHOSPHATASE 123 u/l (38-126); BILIRUBIN, TOTAL 0.3 mg/dL (0.0-1.4); BUN 12 mg/dL (7-17); BUN/CREATININE RATIO 17 (12-20 (CALC)); C-REACTIVE PROTEIN 4.5 mg/dL (0-0.9); CARBON DIOXIDE 28 mmol/l (22-30); CHLORIDE 102 mmol/l (95-108); CREATININE 0.7 mg/dL (0.5-1.0); GFR > 60 ML/MIN (>=60 (CALC)); GFR FOR AFR.AMER. > 60 ML/MIN (>=60 (CALC)); SGOT/AST 102 u/l (14-36); SODIUM 138 mmol/l (137-146); TOTAL PROTEIN 6.8 g/dL (6.3-8.2)
--- NOTE | 2020-02-24 09:15 | NUR ---
NEW #22G STARTED TO RFA ON FIRST ATTEMPT BY THIS WRITTER,PT TOLERATED WELL;MORNING LABS OBTAINED AT THIS TIME;#22G TO RFA REMOVED WITH CATHETER INTACT DUE TO EXPIRATION DATE;PT DENIES ANY ADDITIONAL NEEDS;WILL CONTINUE TO MONITOR
--- NOTE | 2020-02-24 09:50 | NUR ---
RECIEVED REPORT FROM SOPHIE KULKARNI. PT RESTING IN SEMI FOWLERS POSITION UPON ENTERING ROOM. INTRODUCED SELF TO PT AND DISCUSSED POC. ASSESSMENT AND VITALS COMPLETED AT THIS TIME. BP 124/77, HR 66, O2 94% ON ROOM AIR. PT RECIEVING 2L O2 NC PRN. RESPIRATIONS ARE EVEN AND UNLABORED.LUNG SOUNDS ARE DIMINISHED. INCENTIVE SPIROMETER AT BEDSIDE, PT DEMISTRATED FOR WRITTER. PT WAS ABLE TO GO UP TO 1000. HEART RHYTHM IS NORMAL. BOWEL SOUNDS ARE ACTIVE IN ALL QUADRANTS. LAST REOPRTED BM WAS 02/23/20. RADIAL PULSES ARE STRONG WITH NORMAL CAPILLARY REFILL. PEDAL PULSES ARE WEAK WITH NORMAL CAPILLARY REFILL. IV FLUSHED, SITE APPEARS HEALTHY AND PATENT. TELE IN PLACE.PT DENIES ANY PAIN OR DISCOMFORTS AT THIS TIME. ALL SAFETY PRECAUTIONS IN PLACE WITH CALL LIGHT IN REACH.
[2020-02-24 09:55] VITALS: BP 124/77
--- NOTE | 2020-02-24 11:30 | NUR ---
WALK TEST DONE AT THIS TIME. OXYGEN BEFORE WALKING WAS 96% ON ROOM AIR. WHILE WALKING PT DROPPED TO 79% ON ROOM AIR. ARRIVED BACK TO ROOM, PT 85% ON ROOM AIR. 2L O2 APPLIED, PT 94% UPON LEAVING THAT ROOM. RESPIRATIONS ARE EVEN AND UNLABORED. PT DENIES ANY PAIN OR DISCOMFORTS AT THIS TIME.ZHEN Wilson ANRP AND DR TORRES NOTIFIED OF RESULTS AT THIS TIME. ALL SAFETY PRECAUTIONS IN PLACE WITH CALL LIGHT IN REACH. WILL CONTINUE TO MONITOR.
[2020-02-24 11:32] VITALS: BP 114/75
--- NOTE | 2020-02-24 12:20 | NUR ---
PT SITTING ON SIDE OF BED EATING LUNCH. BREATHING IS EVEN AND UNLABORED. PT COMPLAINING OF A 9/10 HEAD ACHE. TRAMADOL GIVEN AT THIS TIME. PT DENIES OF ANY OTHER PAINS OR DISCOMFORTS AT THIS TIME. ALL SAFTEY PRECAUTIONS IN PLACE WITH CALL LIGHT IN REACH. WILL CONTINUE TO MONITOR.
[2020-02-24 14:10] LABS: ANION GAP 12 (6-22 (CALC)); POTASSIUM 3.9 mmol/l (3.5-5.1)
--- NOTE | 2020-02-24 14:56 | NUR ---
DISCHARGE INSTRUCTIONS, EDUCATION GIVEN TO PT, EDUCATED PT ON OXYGEN. PT VEBALIZED UNDERSTANDING. IV REMOVED, CATHATER STILL INTACT. PT TOLERATED WELL. PT DENIES ANY PAIN OR DISCOMFORTS AT THIS TIME. PT STATED THAT SHE WANTED TO SHOWER BEFORE LEAVING AND THEN SHE WILL CALL HER FRIEND FOR TRANSPORTATION. ALL SAFTEY PRECAUTIONS IN PLACE, ENCOURGAED PT TO CALL FOR ASSISTANCE. WILL CONTINUE TO MONITOR.
--- NOTE | 2020-02-24 15:36 | NUR ---
Discharge instructions given. Patient verbalizes understanding of same. Discharged in stable condition via Wheelchair to Home with family. All belongings sent with pt. PT LEFT VIA WHEELCHAIR IN STABLE CONDITION ACCOMPAINED BY BHASKAR LOWRY. ALL BELONGINGS AND DISCHARGE INSTRUCTIONS AND OXYGEN LEFT WITH PT .
--- NOTE | 2020-03-01 13:54 | NUR ---
Pneumonia post discharge follow up call made 03/01/20. Pt staters she is improving daily. States she does not require O2 24/, has had no fever,chills, or unusual SOB since discharge. Pt. said she received call from [facility] that meds were ready and she is gettin g them today. Follow up appt. with PCP has not been made. Encouraged pt to call and set up an appt. Pt a;sp ,emtopmed gabriela [prtab;e O2 dpes mpt see, tp be wprlomg [rp[er;u/ Emcpiraged gabriela tp ca;; :omcare amd ,pita tje, aware pf ossies sp tjeu cam cjecl imot/ Mp meeds ex[ressed bu [atoemt at tjos to,e/ A[[recoatove pf ca;;/
== END 2020-02-24 15:35 | disposition home or self-care (01) | DRG 177 ==
LOC: ED 13:23 → ED-I 16:40 → ED 17:02 → MS2 17:03 → ED-I 17:03 → MS2 17:36
PROVIDERS: Family Medicine; Nurse Practitioner Family; ADMIT Internal Medicine; ATTEND Internal Medicine
DX: U07.1 COVID-19 (principal); J12.89 Other viral pneumonia; E11.9 Type 2 diabetes mellitus without complications; I10 Essential (primary) hypertension; E03.9 Hypothyroidism, unspecified; E78.5 Hyperlipidemia, unspecified; R74.8 Abnormal levels of other serum enzymes; Z87.891 Personal history of nicotine dependence; Z79.84 Long term (current) use of oral hypoglycemic drugs; Z85.118 Personal history of other malignant neoplasm of bronchus and lung
CPT/HCPCS: J1650; Q9967

== ENCOUNTER 2020-09-15 21:46 | Observation (INO) | payer BC ==
[~2020-09-15] VITALS: Ht 149.9 cm; Wt 78.9 kg
[~2020-09-15 21:46] MED LIST changes: +LEVOTHYROXIN125 MCG PO; +LIPITOR20 M1 PO; +METFORMIN500 M2 PO
--- NOTE | 2020-09-15 22:10 | NUR ---
REPORT GIVEN TO COLLEEN BARRIOS
--- NOTE | 2020-09-15 22:10 | NUR ---
PT WALKED TO ROOM WITHOUT EVIDENCE OF ACUTE DISTRESS
[2020-09-15 22:15] LABS: IMMATURE GRANULOCYTES 0.5 % (0.0-5.0); MEAN CELL VOLUME 89.3 fL CALC (80.0-100.0); MEAN CORPUSCULAR HGB 29.5 pG CALC (26.0-32.0); NEUT# 4.14 thou/uL (2.00-7.15); RED BLOOD COUNT 5.05 mill/uL (4.20-5.60); RED CELL DISTRI WIDTH 14.6 % (11.5-15.5)
[2020-09-15 22:22] LABS: HEMATOCRIT 45.1 % (37.0-47.0); HEMOGLOBIN 14.9 g/dl (12.0-16.0)
[2020-09-15 22:33] LABS: ALBUMIN 4.2 g/dL (3.2-5.0); BUN 10 mg/dL (7-17); BUN/CREATININE RATIO 17 (12-20 (CALC)); CARBON DIOXIDE 27 mmol/l (22-30); CHLORIDE 94 mmol/l (95-108); CREATININE 0.6 mg/dL (0.5-1.0); GFR > 60 ML/MIN (>=60 (CALC)); GFR FOR AFR.AMER. > 60 ML/MIN (>=60 (CALC)); LIPASE 193 u/l (23-300); POTASSIUM 4.4 mmol/l (3.5-5.1); SGOT/AST 28 u/l (14-36); TOTAL PROTEIN 6.7 g/dL (6.3-8.2)
[2020-09-15 22:43] LABS: ALKALINE PHOSPHATASE 282 u/l (38-126); ANION GAP 12 (6-22 (CALC)); BILIRUBIN, TOTAL 0.7 mg/dL (0.0-1.4); SODIUM 129 mmol/l (137-146)
[2020-09-16] VITALS (13 sets, daily range): BP systolic 82–128; BP diastolic 50–72
--- NOTE | 2020-09-16 | NUR ---
NO SIGNIFICANT CHANGE IN EXAM.
--- NOTE | 2020-09-16 01:00 | NUR ---
RESTING QUIETLY. NO CHANGE NOTED.
[2020-09-16 01:20] LABS: ANION GAP 11 (6-22 (CALC)); BUN 9 mg/dL (7-17); BUN/CREATININE RATIO 17 (12-20 (CALC)); CARBON DIOXIDE 27 mmol/l (22-30); CHLORIDE 102 mmol/l (95-108); CREATININE 0.5 mg/dL (0.5-1.0); GFR > 60 ML/MIN (>=60 (CALC)); GFR FOR AFR.AMER. > 60 ML/MIN (>=60 (CALC)); POTASSIUM 3.8 mmol/l (3.5-5.1)
[2020-09-16 01:21] LABS: SODIUM 136 mmol/l (137-146)
--- NOTE | 2020-09-16 02:00 | NUR ---
RESTING QUIETLY AWAITING DISPO.
[2020-09-16 02:18] LABS: URINE BILIRUBIN - DIPSTICK NEGATIVE (NEGATIVE); URINE BLOOD DIPSTICK NEGATIVE (NEGATIVE); URINE COLOR YELLOW; URINE GLUCOSE - DIPSTICK >=1000 mg/dL (NEGATIVE); URINE KETONE 40 mg/dL (NEGATIVE); URINE LEUK ESTERASE NEGATIVE (NEGATIVE); URINE NITRITE - DIPSTICK NEGATIVE (Negative); URINE PROTEIN - DIPSTICK NEGATIVE (NEG-TRACE); URINE UROBILINOGEN - DIPSTICK 0.2 E.U./dL (0.2)
--- NOTE | 2020-09-16 02:49 | NUR ---
Admission Note Report Given to: SOPHIE CROOK Transported by: Wheelchair X Stretcher Transported with: X Nurse Transporter X Patent IV O2 Senior Communications Engineer Location: X ICU MS2
--- NOTE | 2020-09-16 03:00 | NUR ---
RECEIVED FROM ER VIA . AMBULATED FROM WC TO BED, STABLE STANCE AND GAIT NOTED. PATIENT IS ALERT AND ORIENTED X4. DENIES ANY CHEST PAIN OR DISCOMFORTS, NO SOB. RESP NON-LABORED. LUNGS CLEAR THROUGHOUT. O2 SAT 96% NO PERIPHERAL EDEMA, PULSES PALPATED. IV IN RAC WITH NS INFUSING AT 125 ML/HR. IV SITE BNEIGN. OYSTER CULLER SHOWS SB. DISCUSSED PLAN OF CARE. DENIES NEEDS AT THIS TIME. CALL SHEPPARD IN REACH.
--- NOTE | 2020-09-16 04:00 | NUR ---
RESTING WITH EYES CLSOED. RESP NON-LABORED. VSS. SB ON MONITOR.
--- NOTE | 2020-09-16 05:00 | NUR ---
BLOOD DRAWN FOR AM LABS.
--- NOTE | 2020-09-16 05:15 | NUR ---
VALUABLES ENVELOPE PICKED UP BY NURSING FINANCIAL SERVICE PROFESSIONAL AND TAKEN TO THE SAFE.
[2020-09-16 05:32] LABS: IMMATURE GRANULOCYTES 0.2 % (0.0-5.0); MEAN CELL VOLUME 90.5 fL CALC (80.0-100.0); MEAN CORPUSCULAR HGB 29.1 pG CALC (26.0-32.0); MEAN CORPUSCULAR HGB CONC 32.1 g/dL CAL (32.0-36.0); NEUT# 3.47 thou/uL (2.00-7.15); RED BLOOD COUNT 4.3 mill/uL (4.20-5.60); RED CELL DISTRI WIDTH 14.2 % (11.5-15.5)
[2020-09-16 05:33] LABS: HEMATOCRIT 38.9 % (37.0-47.0); HEMOGLOBIN 12.5 g/dl (12.0-16.0)
[2020-09-16 05:50] LABS: ANION GAP 8 (6-22 (CALC)); BUN 7 mg/dL (7-17); BUN/CREATININE RATIO 16 (12-20 (CALC)); CARBON DIOXIDE 25 mmol/l (22-30); CHLORIDE 106 mmol/l (95-108); CREATININE 0.5 mg/dL (0.5-1.0); GFR > 60 ML/MIN (>=60 (CALC)); GFR FOR AFR.AMER. > 60 ML/MIN (>=60 (CALC)); POTASSIUM 3.4 mmol/l (3.5-5.1); SODIUM 137 mmol/l (137-146)
--- NOTE | 2020-09-16 06:15 | NUR ---
RESTING WITH EYES CLOSED.
--- NOTE | 2020-09-16 07:20 | NUR ---
pt resting in bed with eyes closed; easily aroused; no apparent distress noted; assessment completed at this time; pt alert and oriented; pt admits to midsternal chest pain rating 7/10; pt admits to pain starting when she woke up but not specific to how long; denies n/v; no diaphoresis noted; resp even and unlabored; lungs clear; skin color wnl; ra; hr reg; strong pulses; no edema noted; sb on monitor; abd soft with bs present; no bm noted per tech writer; no urine to inspect at this time; bsc; #20 patent to rac with ivf infusing without complication; no redness or edema noted at site; plan of care/ am meds explained; call light within reach; will continue to monitor
--- NOTE | 2020-09-16 08:30 | NUR ---
awake in bed eating breakfast; purse given to pt (sent from outside); no apparent distress noted; iv intact and patent; sr on monitor; call light within reach; will continue to monitor
--- NOTE | 2020-09-16 09:12 | NUR ---
Dr Miles present at bedside to assess pt and discuss plan of care
[2020-09-16 09:28] LABS: CHOLESTEROL HDL RATIO 3.7 (<4.4 (CALC)); MAGNESIUM 1.8 mg/dL (1.6-2.3)
--- NOTE | 2020-09-16 09:34 | NUR ---
pt transferred to radiology via wc in stable condition; pending barium swallow eval
--- NOTE | 2020-09-16 09:50 | NUR ---
pt returned to unit via wc in stable condition; will continue to monitor
--- NOTE | 2020-09-16 10:15 | NUR ---
awake in bed; no apparent distress noted; sr on monitor; call light within reach; will continue to monitor
--- NOTE | 2020-09-16 11:19 | NUR ---
per Dr Carmona, she is unavailable this weekend; notified
--- NOTE | 2020-09-16 11:58 | NUR ---
awake in bed; offers no complaints; ate 100% meal/ no complaints; iv intact and patent; no redness or edema noted at site; sr on monitor; call light within reach; will continue to monitor
--- NOTE | 2020-09-16 13:26 | NUR ---
daughter Verenice called per conventional mortgage underwriter; passcode verified; update provided
--- NOTE | 2020-09-16 14:02 | NUR ---
awake; conversing on cell phone; no distress noted; sb on monitor; iv intact; call light within reach; will continue to monitor
--- NOTE | 2020-09-16 15:00 | NUR ---
report given to Tamiko Preston LPN; pt to transfer to med surg tele 272
--- NOTE | 2020-09-16 16:00 | NUR ---
awake in bed; no apparent distress noted; iv intact and patent; no redness or edema noted at site; sr on monitor; pt inquiring "when will I go to my private room"; reassured; will continue to monitor
--- NOTE | 2020-09-16 16:40 | NUR ---
PT ARRIVED TO MED/SURG ROOM 272 VIA WHEELCHAIR ACCOMPANIED BY BHASKAR WILLAMS;PT AMBULATED TO BEDSIDE WITH A STEADY GAIT;WT AND VS OBTAINED BY WRITTER;PT A&O X4, ORIENTED TO ROOM AND CALL LIGHT SYSTEM;PT DENIES ANY CURRENT PAIN OR DISCOMFORTS,PAIN SCALE AND REPORTING EDUCATED;RESPIRATIONS EVEN AND UNLABORED ON RA,CLEAR LUNG SOUNDS;ABDOMEN DISTENDED/SOFT ON PALPATION AND ACTIVE IN ALL 4 QUADRANTS;SKIN INTACT;TELE MONITORING PLACED ON PT AT THIS TIME;#20G TO RAC INFUSING NS @ 125ML/HR,SITE APPEARS HEALTHY;FRESH WATER PROVIDED PER REQUEST;PT DENIES ANY ADDITIONAL NEEDS;ENCOURAGED TO CALL FOR ASSISTANCE IF NEEDED;BED IN THE LOWEST POSITION AND CALL LIGHT IN REACH;WILL CONTINUE TO MONITOR
--- NOTE | 2020-09-16 16:41 | NUR ---
update provided to Tamiko Preston LPN; pt transferred to med surg tele room 272 via wc in stable condition with belongings; safe tag noted with pt
--- NOTE | 2020-09-16 19:00 | NUR ---
REPORT FROM MARY CEDILLO. ASSUMED PT CARE AT THIS TIME.
--- NOTE | 2020-09-16 21:27 | NUR ---
PT MEDICATED WITH NEW MEDICATION AT THIS TIME. EDUCATION PROVIDED ON LEVEMIR. PT VERBALIZED UNDERSTANDING. DIABETIC SNACK AND ORANGE JUICE PROVIDED AT THIS TIME. PT DENIES ANY OTHER CURRENT WANTS OR NEEDS. CALL LIGHT WITHIN REACH. WILL CONTINUE TO MONITOR.
--- NOTE | 2020-09-17 00:23 | NUR ---
PT RESTING IN BED WITH EYES CLOSED. NO APPARENT DISTRESS NOTED. IVF INFUSING WITHOUT DIFFICULTY. DENIES ANY PAIN OR DISCOMFORT. VSS. CALL LIGHT WITHIN REACH. WILL CONTINUE TO MONITOR.
[2020-09-17 03:56] VITALS: BP 106/71
--- NOTE | 2020-09-17 03:59 | NUR ---
PT UP AMBULATING IN ROOM. VOIDED X1 WITHOUT DIFFICULTY. NO APPARENT DISTRESS NOTED. RESPIRATIONS EVEN AND UNLABORED. PT DENIES ANY CURRENT WANTS OR NEEDS. CALL LIGHT WITHIN REACH. WILL CONTINUE TO MONITOR.
[2020-09-17 07:59] VITALS: BP 126/82
--- NOTE | 2020-09-17 08:47 | NUR ---
SHIFT CHANGE REPORT, PT AWAKE ALERT AND ORIENTED SITTING UP ON BED SIDE CONVERSING ON PHONE, NO C/O DISCOMFORT, BED IN LOWEST POSITION AND CALL SHEPPARD IN REACH.
[2020-09-17] MEDS ORDERED: PANTOPRAZOLE SO40 M1 PO (09:30)
[2020-09-17] MEDS ORDERED: LEVEMIR100 UNIT/M SC (09:30)
--- NOTE | 2020-09-17 11:00 | NUR ---
Discharge instructions given. Patient verbalizes understanding of same. Discharged in good condition via Wheelchair to Home with family. All belongings sent with pt. PT ANXIOUS TO GO HOME, EDUCATED ON HYPERGLYCEMIA WITH VERBAL AND WRITTEN COMMUNICATION.
== END 2020-09-17 11:00 | disposition home or self-care (01) | DRG 639 ==
LOC: ED 21:46 → ED-I 09-16 00:57 → ED 09-16 01:14 → ICU 09-16 01:15 → MS2 09-16 16:40
PROVIDERS: Nurse Practitioner; ADMIT Internal Medicine; ATTEND Internal Medicine
DX: E11.65 Type 2 diabetes mellitus with hyperglycemia (principal); K21.00 Gastro-esophageal reflux disease with esophagitis, without bleeding; E78.5 Hyperlipidemia, unspecified; E03.9 Hypothyroidism, unspecified; Z85.118 Personal history of other malignant neoplasm of bronchus and lung; Z90.2 Acquired absence of lung [part of]; Z87.891 Personal history of nicotine dependence; Z79.84 Long term (current) use of oral hypoglycemic drugs; Z20.828 Contact with and (suspected) exposure to other viral communicable diseases
CPT/HCPCS: G0378; Q9967; S0164

== ENCOUNTER 2021-10-25 22:39 | Observation (INO) | payer SELFPAY ==
[~2021-10-25] VITALS: Ht 149.9 cm; Wt 78.0 kg
[~2021-10-25 22:39] MED LIST changes: +LEVEMIR100 UNIT/M SC; +PANTOPRAZOLE SO40 M1 PO
--- NOTE | 2021-10-25 22:50 | NUR ---
BY WC TO ROOM
[2021-10-25 23:33] LABS: HEMATOCRIT 42.1 % (37.0-47.0); HEMOGLOBIN 13.8 g/dl (12.0-16.0); IMMATURE GRANULOCYTES 0.2 % (0.0-5.0); MEAN CELL VOLUME 89.4 fL CALC (80.0-100.0); MEAN CORPUSCULAR HGB 29.3 pG CALC (26.0-32.0); MEAN CORPUSCULAR HGB CONC 32.8 g/dL CAL (32.0-36.0); NEUT# 6.77 thou/uL (2.00-7.15); RED BLOOD COUNT 4.71 mill/uL (4.20-5.60); RED CELL DISTRI WIDTH 13.2 % (11.5-15.5)
[2021-10-25 23:43] LABS: URINE BILIRUBIN - DIPSTICK NEGATIVE (NEGATIVE); URINE BLOOD DIPSTICK SMALL (NEGATIVE); URINE COLOR YELLOW; URINE GLUCOSE - DIPSTICK >=1000 mg/dL (NEGATIVE); URINE KETONE >=80 mg/dL (NEGATIVE); URINE LEUK ESTERASE NEGATIVE (NEGATIVE); URINE PH 5.5 (4.5-8.0); URINE PROTEIN - DIPSTICK TRACE mg/dL (NEG-TRACE); URINE UROBILINOGEN - DIPSTICK 0.2 E.U./dL (0.2)
[2021-10-25 23:45] LABS: URINE NITRITE - DIPSTICK NEGATIVE (Negative)
[2021-10-25 23:51] LABS: ALBUMIN 4.4 g/dL (3.2-5.0); ALKALINE PHOSPHATASE 192 u/l (38-126); AMYLASE 50 u/l (30-110); ANION GAP 14 (6-22 (CALC)); BILIRUBIN, TOTAL 0.7 mg/dL (0.0-1.4); BUN 16 mg/dL (7-17); BUN/CREATININE RATIO 19 (12-20 (CALC)); CARBON DIOXIDE 24 mmol/l (22-30); CHLORIDE 97 mmol/l (95-108); CREATININE 0.8 mg/dL (0.5-1.0); GFR > 60 ML/MIN (>=60 (CALC)); GFR FOR AFR.AMER. > 60 ML/MIN (>=60 (CALC)); LIPASE 129 u/l (23-300); SGOT/AST 30 u/l (14-36); SODIUM 131 mmol/l (137-146); TOTAL PROTEIN 7.7 g/dL (6.3-8.2)
[2021-10-25 23:55] LABS: ACT PARTIAL THROMBO TIME 24.4 SECONDS (20.0-32.5); INTERNATIONAL NORMALIZED RATIO 0.9 RATIO (0.7-1.3); PROTHROMBIN TIME 9.7 SECONDS (9.0-12.5)
[2021-10-25 23:57] LABS: POTASSIUM 4.1 mmol/l (3.5-5.1)
[2021-10-26 00:11] LABS: URINE BACTERIA MANY hpf; URINE SQUAMOUS EPITHELIAL CELL FEW EPI/hpf (0-FEW); URINE WBC 20-50 WBC/hpf (0-5)
--- NOTE | 2021-10-26 01:34 | NUR ---
Reassessment of patient completed. No distress noted.
[2021-10-26 02:10] VITALS: BP 110/64
--- NOTE | 2021-10-26 02:13 | NUR ---
PT TRANSFERRED TO ROOM, REPORT CALLED
[2021-10-26 04:00] VITALS: BP 107/57
[2021-10-26 04:26] LABS: ALBUMIN 3.7 g/dL (3.2-5.0); ALKALINE PHOSPHATASE 149 u/l (38-126); ANION GAP 12 (6-22 (CALC)); BILIRUBIN, TOTAL 0.5 mg/dL (0.0-1.4); BUN 15 mg/dL (7-17); BUN/CREATININE RATIO 20 (12-20 (CALC)); CARBON DIOXIDE 23 mmol/l (22-30); CHLORIDE 102 mmol/l (95-108); CREATININE 0.7 mg/dL (0.5-1.0); GFR > 60 ML/MIN (>=60 (CALC)); GFR FOR AFR.AMER. > 60 ML/MIN (>=60 (CALC)); POTASSIUM 3.9 mmol/l (3.5-5.1); SGOT/AST 29 u/l (14-36); SODIUM 132 mmol/l (137-146); TOTAL PROTEIN 6.9 g/dL (6.3-8.2)
[2021-10-26] MEDS ORDERED: LEVOTHYROXIN125 MCG PO (10:17)
[2021-10-26] MEDS ORDERED: METFORMIN500 M2 PO (10:17)
[2021-10-26] MEDS ORDERED: KEFLEX500 MG PO (10:18)
[2021-10-26] MEDS ORDERED: LIPITOR20 M1 PO (10:23)
[2021-10-26] MEDS ORDERED: ASPIRIN81 MG PO (10:23)
[2021-10-26] MEDS ORDERED: PANTOPRAZOLE SO40 M1 PO (10:24)
[2021-10-26 11:03] VITALS: BP 110/60
== END 2021-10-26 14:09 | disposition home or self-care (01) | DRG 313 ==
LOC: ED 22:39 → ED-I 23:28 → ED 10-26 01:31 → MS2 10-26 01:32
PROVIDERS: ADMIT Hospitalist; ATTEND Hospitalist
DX: R07.9 Chest pain, unspecified (principal); N39.0 Urinary tract infection, site not specified; E87.1 Hypo-osmolality and hyponatremia; E11.65 Type 2 diabetes mellitus with hyperglycemia; E03.9 Hypothyroidism, unspecified; E78.5 Hyperlipidemia, unspecified; B96.89 Other specified bacterial agents as the cause of diseases classified elsewhere; T38.3X6A Underdosing of insulin and oral hypoglycemic [antidiabetic] drugs, initial encounter; Z79.4 Long term (current) use of insulin; Z79.84 Long term (current) use of oral hypoglycemic drugs; Z91.128 Patient's intentional underdosing of medication regimen for other reason; Z85.118 Personal history of other malignant neoplasm of bronchus and lung; Z87.891 Personal history of nicotine dependence; Z87.442 Personal history of urinary calculi; Z86.16 Personal history of COVID-19; Z20.822 Contact with and (suspected) exposure to COVID-19
CPT/HCPCS: G0378

== ENCOUNTER 2023-02-25 07:47 | Observation (INO) | payer SELFPAY ==
[~2023-02-25] VITALS: Ht 149.9 cm; Wt 73.6 kg
[2023-02-25] VITALS (15 sets, daily range): BP systolic 96–158; BP diastolic 65–90
[~2023-02-25 07:47] MED LIST changes: +ASPIRIN81 MG PO; +KEFLEX500 MG PO
--- NOTE | 2023-02-25 07:50 | NUR ---
PATIENT TO ROOM VIA WHEELCHAIR. SHE IS ABLE TO TRANSFER TO BED WITH STEADY GAIT. EMESIS BAG PROVIDED FOR N/V. SHE NOTES DIZZINESS UPON WAKING AT 0600. SHE WENT TO SLEEP AT 2300 LAST NIGHT. NOTIFIED
--- NOTE | 2023-02-25 08:05 | NUR ---
STROKE ALERT CAllED
[2023-02-25] MEDS ORDERED: LEVOTHYROXIN112 MC1 PO (08:15)
[2023-02-25] MEDS ORDERED: METFORMIN HCL1000 MG PO (08:15)
[2023-02-25] MEDS ORDERED: GLIPIZIDE10 M3 (08:15)
[2023-02-25 08:30] LABS: BASO% 0.2 % (0-3); EOS% 1.7 % (0-8); HEMATOCRIT 43.9 % (37.0-47.0); IMMATURE GRANULOCYTES 0.3 % (0.0-5.0); LYMPH% 31.3 % (15-41); MEAN CELL VOLUME 91.8 fL CALC (80.0-100.0); MEAN CORPUSCULAR HGB 29.3 pG CALC (26.0-32.0); MEAN CORPUSCULAR HGB CONC 31.9 g/dL CAL (32.0-36.0); MONO% 9.5 % (2-13); NEUT# 3.72 thou/uL (2.00-7.15); RED BLOOD COUNT 4.78 mill/uL (4.20-5.60); RED CELL DISTRI WIDTH 13.2 % (11.5-15.5)
[2023-02-25 08:44] LABS: ALBUMIN 4.4 g/dL (3.2-5.0); ALKALINE PHOSPHATASE 104 u/l (38-126); BILIRUBIN, TOTAL 0.5 mg/dL (0.02-1.3); BUN 16 mg/dL (7-17); BUN/CREATININE RATIO 20 (12-20 (CALC)); CARBON DIOXIDE 25 mmol/l (22-30); CHLORIDE 105 mmol/l (95-108); CREATININE 0.8 mg/dL (0.5-1.0); GFR FOR AFR.AMER. > 60 ML/MIN (>=60 (CALC)); GFR OTHER RACES > 60 ML/MIN (>=60 (CALC)); POTASSIUM 4.2 mmol/l (3.5-5.1); TOTAL PROTEIN 7.6 g/dL (6.3-8.2)
[2023-02-25 08:45] LABS: PROTHROMBIN TIME 9.9 SECONDS (9.0-12.5)
[2023-02-25 08:47] LABS: ANION GAP 13 (6-22 (CALC)); SGOT/AST 77 u/l (14-36); SODIUM 139 mmol/l (137-146)
--- NOTE | 2023-02-25 09:30 | NUR ---
INFORMED FAMILY OF ON GOING WAIT TIME.
--- NOTE | 2023-02-25 10:30 | NUR ---
ASSUMED CARE OF THE PATIENT AT THIS TIME. PATIENT AMBULATED TO THE BATHROOM TO PROVIDE URINE SAMPLE. PATIENT REQUESTING FOOD AT TIS TIME. SWALLOW EVAL COMPLETED. PATIENT HAS NO DIFFICULTY SWOLLOWING.
--- NOTE | 2023-02-25 11:30 | NUR ---
SPOKE WITH DR. ROLDAN. PATIENT PASSED SWALLOW STUDY. MEAL TRAY PROVIDED.
[2023-02-25 12:04] LABS: URINE BILIRUBIN - DIPSTICK NEGATIVE (NEGATIVE); URINE BLOOD DIPSTICK NEGATIVE (NEGATIVE); URINE COLOR YELLOW; URINE GLUCOSE - DIPSTICK NEGATIVE (NEGATIVE); URINE KETONE NEGATIVE (NEGATIVE); URINE LEUK ESTERASE NEGATIVE (NEGATIVE); URINE PROTEIN - DIPSTICK NEGATIVE (NEG-TRACE); URINE UROBILINOGEN - DIPSTICK 0.2 E.U./dL (0.2)
[2023-02-25 12:06] LABS: URINE NITRITE - DIPSTICK NEGATIVE (Negative)
--- NOTE | 2023-02-25 13:23 | NUR ---
VERBAL REPORT GIVEN TO RECIEVING NURSE ARMIN BARRIOS. [facility]
--- NOTE | 2023-02-25 13:37 | NUR ---
PT ARRIVED ON UNIT @ 1337 TRANSPORTED VIA STRETCHER BY ED STAFF AND SETTLED IN BED. ALERT AND ORIENTED X 4, C/O MILD DIZZINESS, DENIES PAIN. ORIENTED TO ROOM AND CALL SHEPPARD, TELE MONITOR IN PLACE, TEDS APPLIED, CALL SHEPPARD IN REACH.
--- NOTE | 2023-02-25 19:20 | NUR ---
PATIENT RESTING. NO APPARENT DISTRESS NOTED. CALL LIGHT AND BEDSIDE TABLE WITHIN REACH. BED ALARM ON FOR SAFETY. MRI CHECKLIST COMPLETED. PATIENT HAS UPPER DENTURES, REMOVEABLE AND TATTOOS.
--- NOTE | 2023-02-25 19:20 | NUR ---
REPORT RECEIVED FROM William SHEN RN
--- NOTE | 2023-02-25 23:50 | NUR ---
PATIENT RESTING, NO APPARENT DISTRESS NOTED. RESPIRATIONS EVEN AND UNLABORED. RISE AND FALL OF CHEST NOTED. CALL LIGHT AND BEDSIDE TABLE WITHIN REACH. BED ALARM ON FOR SAFETY.
[2023-02-26 04:16] VITALS: BP 104/68
[2023-02-26 05:21] LABS: CHOLESTEROL HDL RATIO 7.1 (<4.4 (CALC)); MAGNESIUM 1.9 mg/dL (1.6-2.3)
[2023-02-26 07:11] VITALS: BP 102/65
--- NOTE | 2023-02-26 08:00 | NUR ---
PT RESTING IN BED WATCHING TV. EDUCATED PT IN PLAN OF CARE. PT INIDCATED UNDERSTANDING. NIH SCORE: 0 STATES NO PAIN. FALL/SAFTEY PRECAUTION IN PLACE. CALL LIGHT WITHIN REACH
--- NOTE | 2023-02-26 12:00 | NUR ---
PT EAITNG LUNCH. STATES NO NEEDS AT THIS TIME. FALL/SAFTEY PRECAUTION N PLACE. CALL LIGHT WITHN REACH
[2023-02-26 15:13] VITALS: BP 127/66
[2023-02-26] MEDS ORDERED: ASPIRIN REGULA325 M1 PO (16:13)
--- NOTE | 2023-02-26 17:15 | NUR ---
Discharge instructions given. Patient verbalizes understanding of same. Discharged in stable condition via Wheelchair to Home with staff. All belongings sent with pt.
== END 2023-02-26 17:15 | disposition home or self-care (01) | DRG 149 ==
LOC: ED 07:47 → ED-I 11:50 → ED 12:15 → MS2 12:16
PROVIDERS: Family Medicine; ADMIT Internal Medicine; ATTEND Internal Medicine
DX: R42 Dizziness and giddiness (principal); E11.9 Type 2 diabetes mellitus without complications; E03.9 Hypothyroidism, unspecified; E78.5 Hyperlipidemia, unspecified; Z86.16 Personal history of COVID-19; Z79.84 Long term (current) use of oral hypoglycemic drugs; Z85.118 Personal history of other malignant neoplasm of bronchus and lung; Z87.891 Personal history of nicotine dependence; Z90.2 Acquired absence of lung [part of]; Z87.442 Personal history of urinary calculi
CPT/HCPCS: G0378; Q9967

== ENCOUNTER 2023-09-20 23:09 | Observation (INO) | payer SELFPAY ==
[~2023-09-20] VITALS: Ht 149.9 cm; Wt 66.5 kg
[~2023-09-20 23:09] MED LIST changes: +ASPIRIN REGULA325 M1 PO; +FLUCONAZOLE50 MG PO; +GLIPIZIDE10 M3; +LEVEMIR100 UNIT SC; +LEVOTHYROXIN112 MC1 PO; +METFORMIN HCL1000 MG PO
[2023-09-20] MEDS ORDERED: METFORMIN HCL1000 MG PO (23:29)
[2023-09-20] MEDS ORDERED: LEVOTHYROXIN112 MC1 PO (23:29)
[2023-09-20 23:54] VITALS: BP 156/94
[2023-09-21] VITALS (23 sets, daily range): BP systolic 101–135; BP diastolic 52–85
[2023-09-21 00:47] LABS: ANION GAP 21 (6-22 (CALC)); BUN 17 mg/dL (7-17); BUN/CREATININE RATIO 28 (12-20 (CALC)); CARBON DIOXIDE 22 mmol/l (22-30); CHLORIDE 96 mmol/l (95-108); CREATININE 0.6 mg/dL (0.5-1.0); GFR FOR AFR.AMER. > 60 ML/MIN (>=60 (CALC)); GFR OTHER RACES > 60 ML/MIN (>=60 (CALC)); POTASSIUM 4.5 mmol/l (3.5-5.1); SGOT/AST 53 u/l (14-36); SODIUM 134 mmol/l (137-146)
[2023-09-21 00:52] LABS: URINE BILIRUBIN - DIPSTICK Negative (NEGATIVE); URINE BLOOD DIPSTICK Negative (NEGATIVE); URINE GLUCOSE - DIPSTICK 500 mg/dL (NEGATIVE); URINE KETONE Negative (NEGATIVE); URINE LEUK ESTERASE Negative (NEGATIVE); URINE NITRITE - DIPSTICK Negative (Negative); URINE PH 6.5 (4.5-8.0); URINE PROTEIN - DIPSTICK Negative (NEG-TRACE); URINE SPECIFIC GRAVITY 1.015; URINE UROBILINOGEN - DIPSTICK 0.2 E.U./dL (0.2)
[2023-09-21 00:53] LABS: URINE COLOR Yellow
[2023-09-21 00:59] LABS: ALBUMIN 4.6 g/dL (3.2-5.0); ALKALINE PHOSPHATASE 374 u/l (38-126); BILIRUBIN, TOTAL 0.5 mg/dL (0.02-1.3); TOTAL PROTEIN 7.7 g/dL (6.3-8.2)
[2023-09-21 01:10] LABS: BASO% 0.1 % (0-3); EOS% 0.9 % (0-8); IMMATURE GRANULOCYTES 0.9 % (0.0-5.0); LYMPH% 36.1 % (15-41); MEAN CELL VOLUME 90.9 fL CALC (80.0-100.0); MEAN CORPUSCULAR HGB 29.6 pG CALC (26.0-32.0); MEAN CORPUSCULAR HGB CONC 32.5 g/dL CAL (32.0-36.0); MONO% 6.1 % (2-13); NEUT# 3.75 thou/uL (2.00-7.15); NEUT% 55.9 % (42-76); RED BLOOD COUNT 4.97 mill/uL (4.20-5.60); RED CELL DISTRI WIDTH 12.7 % (11.5-15.5)
[2023-09-21 01:15] LABS: HEMATOCRIT 45.2 % (37.0-47.0); HEMOGLOBIN 14.7 g/dl (12.0-16.0)
[2023-09-21 06:50] LABS: MEAN CORPUSCULAR HGB 30.3 pG CALC (26.0-32.0); MEAN CORPUSCULAR HGB CONC 33.3 g/dL CAL (32.0-36.0); RED BLOOD COUNT 4.09 mill/uL (4.20-5.60); RED CELL DISTRI WIDTH 12.8 % (11.5-15.5)
[2023-09-21 06:56] LABS: HEMATOCRIT 37.2 % (37.0-47.0); HEMOGLOBIN 12.4 g/dl (12.0-16.0)
[2023-09-21 07:10] LABS: ALKALINE PHOSPHATASE 193 u/l (38-126); ANION GAP 11 (6-22 (CALC)); BUN 15 mg/dL (7-17); BUN/CREATININE RATIO 25 (12-20 (CALC)); CARBON DIOXIDE 24 mmol/l (22-30); CHLORIDE 105 mmol/l (95-108); CREATININE 0.6 mg/dL (0.5-1.0); GFR FOR AFR.AMER. > 60 ML/MIN (>=60 (CALC)); GFR OTHER RACES > 60 ML/MIN (>=60 (CALC)); POTASSIUM 3.6 mmol/l (3.5-5.1); SGOT/AST 39 u/l (14-36); SODIUM 136 mmol/l (137-146)
[2023-09-21 07:12] LABS: BILIRUBIN, TOTAL 0.2 mg/dL (0.02-1.3)
[2023-09-21 07:13] LABS: ALBUMIN 3.4 g/dL (3.2-5.0); TOTAL PROTEIN 5.9 g/dL (6.3-8.2)
[2023-09-21] MEDS ORDERED: LEVEMIR100 UNIT SC (10:03)
[2023-09-21] MEDS ORDERED: METFORMIN HCL1000 MG PO (10:03)
== END 2023-09-21 15:00 | disposition home or self-care (01) | DRG 639 ==
LOC: ED 23:09 → ICU 09-21 01:30
PROVIDERS: Family Medicine; ADMIT Student in an Organized Health Care Education/Training Program; ATTEND Student in an Organized Health Care Education/Training Program
DX: E11.65 Type 2 diabetes mellitus with hyperglycemia (principal); E03.9 Hypothyroidism, unspecified; E78.5 Hyperlipidemia, unspecified; Z79.4 Long term (current) use of insulin; Z79.84 Long term (current) use of oral hypoglycemic drugs; Z85.118 Personal history of other malignant neoplasm of bronchus and lung; Z86.16 Personal history of COVID-19; Z87.891 Personal history of nicotine dependence

== ENCOUNTER 2023-10-18 22:21 | Emergency (ER) | payer SELFPAY ==
[~2023-10-18] VITALS: Ht 149.9 cm; Wt 63.0 kg
[2023-10-19 00:31] VITALS: BP 119/82
[2023-10-19 01:00] VITALS: BP 113/68
[2023-10-19 01:31] VITALS: BP 123/72
[2023-10-19 02:01] VITALS: BP 125/81
[2023-10-19 02:36] LABS: URINE BILIRUBIN - DIPSTICK Negative (NEGATIVE); URINE BLOOD DIPSTICK Trace-lysed (NEGATIVE); URINE COLOR Yellow; URINE GLUCOSE - DIPSTICK >=1000 mg/dL (NEGATIVE); URINE KETONE Negative (NEGATIVE); URINE LEUK ESTERASE Negative (NEGATIVE); URINE NITRITE - DIPSTICK Negative (Negative); URINE PROTEIN - DIPSTICK Negative (NEG-TRACE); URINE UROBILINOGEN - DIPSTICK 0.2 E.U./dL (0.2)
[2023-10-19 02:37] LABS: BASO% 0.4 % (0-3); EOS% 0.8 % (0-8); HEMOGLOBIN 14.1 g/dl (12.0-16.0); IMMATURE GRANULOCYTES 0.4 % (0.0-5.0); LYMPH% 28.9 % (15-41); MEAN CELL VOLUME 90.3 fL CALC (80.0-100.0); MEAN CORPUSCULAR HGB 29.6 pG CALC (26.0-32.0); MEAN CORPUSCULAR HGB CONC 32.8 g/dL CAL (32.0-36.0); MONO% 6.4 % (2-13); NEUT# 5.26 thou/uL (2.00-7.15); NEUT% 63.1 % (42-76); RED BLOOD COUNT 4.76 mill/uL (4.20-5.60); RED CELL DISTRI WIDTH 12.4 % (11.5-15.5)
[2023-10-19 02:47] LABS: ALKALINE PHOSPHATASE 262 u/l (38-126); ANION GAP 12 (6-22 (CALC)); BUN 17 mg/dL (7-17); BUN/CREATININE RATIO 28 (12-20 (CALC)); CARBON DIOXIDE 24 mmol/l (22-30); CHLORIDE 100 mmol/l (95-108); CREATININE 0.6 mg/dL (0.5-1.0); GFR FOR AFR.AMER. > 60 ML/MIN (>=60 (CALC)); GFR OTHER RACES > 60 ML/MIN (>=60 (CALC)); SGOT/AST 39 u/l (14-36); SODIUM 132 mmol/l (137-146)
[2023-10-19 03:05] LABS: ALBUMIN 4.3 g/dL (3.2-5.0); BILIRUBIN, TOTAL 0.5 mg/dL (0.02-1.3); TOTAL PROTEIN 7.2 g/dL (6.3-8.2)
[2023-10-19] MEDS ORDERED: METRONIDAZOLE500 MG PO ×2 (07:16→08:19)
[2023-10-19 08:07] VITALS: BP 129/74
[2023-10-19 08:33] VITALS: BP 129/74
== END 2023-10-19 08:50 | disposition home or self-care (01) | DRG 639 ==
LOC: ED 22:21
PROVIDERS: Family Medicine
DX: E11.00 Type 2 diabetes mellitus with hyperosmolarity without nonketotic hyperglycemic-hyperosmolar coma (NKHHC) (principal); E11.65 Type 2 diabetes mellitus with hyperglycemia; B37.31 Acute candidiasis of vulva and vagina; Z85.118 Personal history of other malignant neoplasm of bronchus and lung; Z90.2 Acquired absence of lung [part of]; Z86.16 Personal history of COVID-19; Z79.4 Long term (current) use of insulin